=== PATIENT | female | born 1995 | race Two or more races ===

== ENCOUNTER 2025-03-16 22:45 | Inpatient (IN) | payer MEDICAID, OTHER ==
[~2025-03-16] VITALS: Ht 165.1 cm; Wt 83.5 kg
--- NOTE | 2025-03-17 01:00 | ED.PDOC ---
History of Present Illness HPI Comments 29-year-old female who presents with the emergency department with 1 day of intense 10/10 abdominal pain in the mid upper abdomen radiating to the back. No aggravating or alleviating factors. Patient reports similar symptoms 4 years ago after eating bad food while she was . She reports associated vo miting. Diarrhea, constipation, blood in the stool or vomit. No hematuria. she is unsure if she could be . Medical history includes mastitis, breast biopsy. She was on Keflex and completed a one-week course Saturday. She denies any allergies. REVIEW OF SYSTEMS: General: No fever, no chills, or fatigue, + sweats HEENT: No sore throat, no earache, no congestion, no neck pain. Cardiac: No chest pain. No palpitations. Lungs: No shortness of breath, no cough. GI: + nausea, + vomiting, no diarrhea, no constipation, no abdominal pain : No dysuria, frequency, or urgency. No hematuria. Musculoskeletal: No joint pain , no joint swelling, no extremity edema. Skin: No rash, no itching. Neuro: No headache, no dizziness, no weakness PHYSICAL EXAM: General: Awake, alert and oriented. No acute distress. Skin: Skin in warm, dry and intact without rashes or lesions. HEENT: The head is normocephalic and atraumatic. Conjunctivae are clear without exudates or hemorrhage. Sclera is non-icteric. Neck: Normal range of motion. No JVD. Cardiac: Regular rate Respiratory: No signs of respiratory distress. No Stridor. Abdomen: Epigastric and right upper quadrant tenderness. Abdomen is Soft. No rigidity. Neurological: The patient is awake, alert and oriented to person, place, and time with normal speech. Speech is clear. There is no facial asymmetry. Psychiatric: Appropriate mood and affect. Good judgement and insight. Chief Complaint: Nausea/Vomiting Time Seen by MD: 00:20 Allergies: Coded Allergies: NO KNOWN ALLERGIES (Unverified , 03/16/25) Mode of Arrival: Ambulatory Was a procedure done? Was a procedure done?: No Differential Dx Considerations may include: Differential diagnoses considered include: Abdominal aortic aneurysm, IN, esophageal rupture, intestinal obstruction, mesenteric ischemia, perforated viscus or solid organ rupture, CHF with hepatomegaly, pneumonia, abscess, appendicitis, biliary disease, diverticulitis, gastritis, gastroenteritis, hepatitis, hernia, inflammatory bowel disease, pancreatitis, peptic ulcer dis ease, urinary tract infection, ureteral colic, constipation, GERD, irritable syndrome, abdominal wall pain, nonspecific abdominal pain, herpes zoster, nephrolithiasis. Also ruptured ectopic , ovarian torsion/cyst, tubo- ovarian abscess, PID, endometriosis, mittleschmerz. X-Ray, Labs, Meds, VS Vital Signs Date Time Temp Pulse Resp B/P (MAP) Pulse Ox O2 Delivery O2 Flow Rate FiO2 03/17/25 05:00 98.3 80 14 130/79 (96) 97 98.3 03/17/25 02:45 Room Air* 0 21 03/17/25 01:30 98.4 48 14 132/80 (97) 100 98.4 03/16/25 22:49 98.3 59 18 150/94 98 98.3 Lab Test 03/17/25 03:00 03/17/25 01:05 Range/Units Urine Color Yellow Yellow Urine Clarity Turbid H Clear Urine pH 7.0 5.0-9.0 Urine Specific [place] 1.036 H 1.001-1.035 Urine Protein 1+ H Negative Urine Ketones Negative Negative Urine Blood Negative Negative /uL Urine Nitrite Negative Negative Urine Bilirubin 1+ H Negative Urine Urobilinogen 6 Negative mg/dL Urine Leukocyte Esterase 1+ Negative /uL Urine RBC 42 0 - 4 /hpf Urine Microscopic WBC 5 0-5 /HPF Urine Squamous Epithelial Cells Mod <5 /hpf Urine Bacteria None seen None Seen /hpf Urine Mucus Few None Seen Urine Glucose Normal Normal mg/dL Urine Test Negative Negative White Blood Count 11.0 H 4.4-10.8 10^3/uL Red Blood Count 4.57 4.0-5.20 10^6/uL Hemoglobin 13.5 12.2-16.2 g/dL Hematocrit 39.1 36.0-46.0 % Mean Corpuscular Volume 85.7 80.0-100.0 fL Mean Corpuscular Hemoglobin 29.5 28.0-32.0 pg Mean Corpuscular Hemoglobin Concent 34.5 32.0-36.0 g/dL Red Cell Distribution Width 14.8 H 11.8-14.3 % Platelet Count 259 140-450 10^3/uL Mean Platelet Volume 6.2 L 6.9-10.8 fL Neutrophils (%) (Auto) 86.2 H 37.0-80.0 % Lymphocytes (%) (Auto) 6.5 L 10.0-50.0 % Monocytes (%) (Auto) 6.5 0.0-12.0 % Eosinophils (%) (Auto) 0.4 0.0-7.0 % Basophils (%) (Auto) 0.4 0.0-2.0 % Neutrophils # (Auto) 9.5 H 1.6-8.6 10 ^3/uL Lymphocytes # (Auto) 0.7 0.4-5.4 10 ^3/uL Monocytes # (Auto) 0.7 0-1.3 10 ^3/uL Eosinophils # (Auto) 0 0-0.8 10 ^3/uL Basophils # (Auto) 0 0-0.2 10 ^3/uL Nucleated Red Blood Cells 0.0 % Sodium Level 138 136-145 mmol/L Potassium Level 4.3 3.5-5.1 mmol/L Chloride Level 103 98-107 mmol/L Carbon Dioxide Level 25 20-31 mmol/L Anion Gap 10 5-15 Blood Urea Nitrogen 10 9-23 mg/dL Creatinine 0.62 0.550-1.02 mg/dL Glomerular Filtration Rate Calc 124 >90 mL/min BUN/Creatinine Ratio 16.1 10.0-20.0 Serum Glucose 157 H 74-106 mg/dL Lactic Acid Level 1.6 0.4-2.0 mmol/L Calcium Level 9.3 8.7-10.4 mg/dL Total Bilirubin 1.2 H 0.2-1.0 mg/dL Aspartate Amino Transferase (AST) 687 H 13-40 U/L Alanine Aminotransferase (ALT) 431 H 7-40 U/L Alkaline Phosphatase 109 46-116 U/L Total Protein 7.2 5.7-8.2 g/dL Albumin 4.5 3.2-4.8 g/dL Lipase 36 12-53 U/L Current Medications Medications (Trade) Dose Ordered Sig/Hayes Route Start Time Stop Time Status Last Admin Ketorolac Tromethamine (Toradol Injection) 30 mg ONCE ONCE IM 03/17/25 00:45 03/17/25 01:02 DC 03/17/25 01:28 Tramadol HCl (Ultram) 50 mg ONCE ONCE PO 03/17/25 00:45 03/17/25 01:02 DC 03/17/25 01:27 Acetaminophen (Tylenol Tablet) 650 mg ONCE ONCE PO 03/17/25 00:45 03/17/25 01:03 DC 03/17/25 01:27 Ondansetron HCl (Zofran Po) 4 mg ONCE ONCE PO 03/17/25 00:45 03/17/25 01:03 DC 03/17/25 01:27 Sodium Chloride 1,000 ml @ 100 mls/hr Q10H IV 03/17/25 08:15 03/17/25 15:31 Sodium Chloride 1,000 ml @ 1,000 mls/hr Q1H ONCE IV 03/17/25 08:15 03/17/25 09:14 DC 03/17/25 09:00 Time of 1ST Reevaluation: 00:59 Reevaluation 1ST: Unchanged Patient Education/Counseling: Need For Follow Up Family Education/Counseling: Need For Follow Up SEPSIS Sepsis Screen Date sepsis recognized/suspect: Mar 16, 2025 Time Sepsis recognized/suspect: 2248 Recent Procedure: No Respiratory Rate >20: No Heart Rate >90: No Temp<36 C (96.8 F) or >38.3 C: No SBP <90 or MAP <65 mmHG: No New Acute Mental Status Change: No Is the patient on CPAP, BIPAP,: No Physician Orders Gallbladder (03/17/25 00:45) Ct Ab Pel With Iv Con Only (03/17/25 05:00) Mrcp Mri (03/17/25 05:38) Code Status (03/17/25 08:13) Sodium Chloride 0.9% (03/17/25 08:15) Hydrocodone-Acet 5/325mg Tab ([place] 5/32 (03/17/25 08:15) Ondansetron Hcl (Zofran) (03/17/25 08:15) Docusate Sodium Capsule (Colace Capsule) (03/17/25 08:15) Complete Blood Count (03/18/25 04:00) Comprehensive Metabolic Panel (03/18/25 04:00) Npo (Nothing By Mouth) Diet (03/17/25 Breakfast) Condition: Serious (03/17/25 08:13) Acetaminophen Tablet (Tylenol Tablet) (03/17/25 08:15) Chest Xray 1 View (03/17/25 08:13) * Surgical Consult (03/17/25 08:23) Admit (03/17/25 08:26) Vital Signs Date Time Temp Pulse Resp B/P (MAP) Pulse Ox O2 Delivery O2 Flow Rate FiO2 03/17/25 05:00 98.3 80 14 130/79 (96) 97 98.3 03/17/25 02:45 Room Air* 0 21 03/17/25 01:30 98.4 48 14 132/80 (97) 100 98.4 03/16/25 22:49 98.3 59 18 150/94 98 98.3 Laboratory Tests Test 03/17/25 01:05 Lactic Acid Level 1.6 mmol/L (0.4-2.0) White Blood Count 11.0 10^3/uL (4.4-10.8) H Medications Medications Dose Ordered Sig/Hayes Route Start Time Stop Time Status Last Admin Dose Admin Sodium Chloride 1,000 ml @ 100 mls/hr Q10H IV 03/17/25 08:15 03/17/25 15:31 Sodium Chloride 1,000 ml @ 1,000 mls/hr Q1H ONCE IV 03/17/25 08:15 03/17/25 09:14 DC 03/17/25 09:00 Departure 1 Departure Time of Disposition: 06:00 Impression: Primary Impression: Cholelithiases Additional Impression: Elevated LFTs Disposition: 30 STILL A PATIENT Condition: Stable Comments Possible transfer for ERCP pending MRCP results. Critical Care Note Critical Care Time?: No Stability Stability form required: DIONNE Abbott MD Mar 17, 2025 01:00
[2025-03-17 01:19] LABS: Hematocrit 39.1 % (36.0-46.0); Hemoglobin 13.5 g/dL (12.2-16.2); Mean Corpuscular Hemoglobin 29.5 pg (28.0-32.0); Mean Corpuscular Volume 85.7 fL (80.0-100.0); Nucleated Red Blood Cells % 0.0 %
[2025-03-17] MEDS: ACETAMINOPHEN 325 MG TAB PO ONE (01:27)
[2025-03-17] MEDS: ONDANSETRON ODT 4 MG TAB PO ONE (01:27)
[2025-03-17] MEDS: KETOROLAC TROMETH 30 MG/ML 1ML VIAL IM ONE (01:28)
[2025-03-17 01:45] LABS: Albumin 4.5 g/dL (3.2-4.8); Alkaline Phosphatase 109 U/L (46-116); Anion Gap 10 (5-15); BUN/Creatinine Ratio 16.1 (10.0-20.0); Blood Urea Nitrogen 10 mg/dL (9-23); Calcium 9.3 mg/dL (8.7-10.4); Carbon Dioxide 25 mmol/L (20-31); Chloride 103 mmol/L (98-107); Lipase 36 U/L (12-53); Potassium 4.3 mmol/L (3.5-5.1); Sodium 138 mmol/L (136-145); Total Protein 7.2 g/dL (5.7-8.2)
[2025-03-17 01:46] LABS: Bilirubin, Total 1.2 mg/dL (0.2-1.0)
--- NOTE | 2025-03-17 01:47 | DVH ---
INDICATION: RUQ, epigastric tender TECHNIQUE: Multiple real-time sonographic images were obtained of the right upper quadrant. COMPARISON: None FINDINGS: The liver demonstrates normal homogeneous echotexture without focal mass lesions. The liver measures 16.8 cm. Normal hepatopetal portal venous flow. No evidence of pleural effusion or abdomin al ascites. There is no intrahepatic or extrahepatic ductal dilatation. The common duct measures 0.5 cm. Mobile gallstones within the gallbladder. The gallbladder wall measures 0.3 cm and is within normal l imits. Negative sonographic bergman's sign. The right kidney measures 9.6 cm. The right kidney is normal in contour, size, and shape. The echogen icity is normal. There is no hydronephrosis. The pancreas is not well visualized due to overlying bowel gas. IMPRESSION: 1. Cholelithiasis without sonographic evidence of acute cholecystitis.
[2025-03-17 01:48] LABS: Alanine Aminotransferase 431 U/L (7-40); Glucose 157 mg/dL (74-106)
[2025-03-17 04:36] LABS: Urine Protein, UAD 1+ (Negative)
--- NOTE | 2025-03-17 05:27 | DVH ---
Exam: CT CT AB PEL WITH IV CON ONLY History: elevated LFTs, r/o cholecystitis , r/o dilated CBD Comparison Study: None Contrast: Type of contrast: Contrast injected: Contrast wasted: 0 TECHNIQUE: CT of the abdomen and pelvis was performed with intravenous contrast. Coronal and sagitta l reformatted images are submitted. Radiation Dose Information: CT Dose: CTDI volume is 17.99 mGy. Dose-length product is 1020.1 mGy*cm FINDINGS: Lung Bases: No acute or significant lung base finding. Normal heart size. No pleural or pericardial effusion. Liver: The liver is normal in size. No focal lesions. Normal hepatic vascular enhancement. Gallbladder and Biliary Tree: Distended gallbladder. Mild diffuse intrahepatic biliary ductal dilatat ion. The common bile duct measures 0.5 cm. Spleen: Unremarkable Pancreas: The pancreas is normal in appearance without focal lesions or abnormal enhancement. Adrenal Glands: Unremarkable Kidneys: Kidneys demonstrate normal symmetric enhancement without focal lesions, calculi or hydroneph rosis. Bladder: Unremarkable Bowel: The stomach is grossly normal in appearance. Small bowel and colon are normal in caliber and d istribution. The appendix is visualized and is normal. Peritoneum: No pneumoperitoneum. No ascites. Lymphadenopathy: No mesenteric, retroperitoneal or periportal lymphadenopathy. Abdominal Wall and Mesentery: Unremarkable. Vasculature: The visualized abdominal aorta is normal in size and caliber. Abdominal and pelvic vess els demonstrate normal enhancement. Pelvic Organs: Unremarkable Musculoskeletal: No aggressive focal bony lesions, acute fractures or dislocation. Soft tissues: Unremarkable. IMPRESSION: 1. Distended gallbladder with mild diffuse intrahepatic biliary ductal dilatation. No cholelithias is. Ultrasound is recommended for further evaluation.
[2025-03-17] MEDS ORDERED: DOCUSATE SOD 100 MG CAP PO PRN (08:15)
[2025-03-17] MEDS ORDERED: ONDANSETRON HCL 4 MG/2 ML VIAL IV PRN (08:15)
--- NOTE | 2025-03-17 08:24 | DVHHP2 ---
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 Patient states the pain began about 1800 with associated sweating, nausea, and vomiting. It worsened about 2200 prompting her to come to the hospital. She last ate about 1700. She states she had an episode like this about 4 years ago, but they pain improved so she never went to the doctor for it. Dermatology: Other (chronic mastitis with abscesses) Past Surgical History: None Smoke: No ALCOHOL: none Drugs: None Lives: with Family Domestic Violence: Neg Review of Systems Constitutional: Yes: Sweats; No: Fever, Chills, Weakness, Malaise, Other Eyes: No: Pain, Vision change, Conjunctivae inflammation, Eyelid inflammation, Other, Redness ENT: No: Ear pain, Ear discharge, Nose pain, Nose discharge, Nose congestion, Mouth pain, Mouth swelling, Throat pain, Throat swelling, Other Respiratory: No: Cough, Dry, Shortness of breath, SOB with excertion, Wheezing, Hemoptysis, Pleuritic Pain, Sputum, Wheezing, Other Cardiovascular: No: Chest Pain, Palpitations, Orthopnea, Paroxysmal Noc. Dyspnea, Edema, Lt Headedness, Other Gastrointestinal: Nausea, Vomiting, Abdominal Pain; No: Diarrhea, Constipation, Melena, Hematochezia, Other Genitourinary: No Dysuria, No Frequency, No Incontinence, No Hematuria, No Retention, No Other Musculoskeletal: No: other, neck pain, shoulder pain, arm pain, back pain, hand pain, leg pain, foot pain Skin: No: Rash, Lesions, Jaundice, Bruising, Other Neurological: No: Weakness, Numbness, Incoordination, Change in speech, Confusion, Seizures, Other Allergies: Coded Allergies: NO KNOWN ALLERGIES (Unverified , 03/16/25) Medications Current Medications Medications Dose Ordered Sig/Hayes Route Start Time Stop Time Status Last Admin Dose Admin Sodium Chloride 1,000 ml @ 100 mls/hr Q10H IV 03/17/25 08:15 UNV Acetaminophen/ Hydrocodone Bitart 1 tab Q4HP PRN PO 03/17/25 08:15 UNV Ondansetron HCl 4 mg Q4HP PRN IV 03/17/25 08:15 UNV Docusate Sodium 100 mg BIDPRN PRN PO 03/17/25 08:15 UNV Acetaminophen 650 mg Q6HP PRN PO 03/17/25 08:15 UNV Exam Vital Signs Vital Signs Date Time Temp Pulse Resp B/P (MAP) Pulse Ox O2 Delivery O2 Flow Rate FiO2 03/17/25 05:00 98.3 80 14 130/79 (96) 97 98.3 03/17/25 02:45 Room Air* 0 21 General Appearance: Alert, Oriented X3, Cooperative, mild distress HEENT: Atraumatic, PERRLA Respiratory: Clear to auscultation, Normal air movement Cardiovascular: Regular rate, Normal S1, Normal S2 Abdominal: Normal bowel sounds, Soft, Other (Tenderness to RUQ) Extremities: No clubbing, No cyanosis, No edema, Normal pulses, No tenderness/swelling Skin: No rashes, No breakdown, No significant lesion Neuro: Normal gait, Normal speech, Strength at 5/5 X4 ext, Normal tone Psych/Mental Status: Mental status NL, Mood NL Labs/Xrays Labs Test 03/17/25 03:00 03/17/25 01:05 Range/Units Urine Color Yellow Yellow Urine Clarity Turbid H Clear Urine pH 7.0 5.0-9.0 Urine Specific [place] 1.036 H 1.001-1.035 Urine Protein 1+ H Negative Urine Ketones Negative Negative Urine Blood Negative Negative /uL Urine Nitrite Negative Negative Urine Bilirubin 1+ H Negative Urine Urobilinogen 6 Negative mg/dL Urine Leukocyte Esterase 1+ Negative /uL Urine RBC 42 0 - 4 /hpf Urine Microscopic WBC 5 0-5 /HPF Urine Squamous Epithelial Cells Mod <5 /hpf Urine Bacteria None seen None Seen /hpf Urine Mucus Few None Seen Urine Glucose Normal Normal mg/dL Urine Test Negative Negative White Blood Count 11.0 H 4.4-10.8 10^3/uL Red Blood Count 4.57 4.0-5.20 10^6/uL Hemoglobin 13.5 12.2-16.2 g/dL Hematocrit 39.1 36.0-46.0 % Mean Corpuscular Volume 85.7 80.0-100.0 fL Mean Corpuscular Hemoglobin 29.5 28.0-32.0 pg Mean Corpuscular Hemoglobin Concent 34.5 32.0-36.0 g/dL Red Cell Distribution Width 14.8 H 11.8-14.3 % Platelet Count 259 140-450 10^3/uL Mean Platelet Volume 6.2 L 6.9-10.8 fL Neutrophils (%) (Auto) 86.2 H 37.0-80.0 % Lymphocytes (%) (Auto) 6.5 L 10.0-50.0 % Monocytes (%) (Auto) 6.5 0.0-12.0 % Eosinophils (%) (Auto) 0.4 0.0-7.0 % Basophils (%) (Auto) 0.4 0.0-2.0 % Neutrophils # (Auto) 9.5 H 1.6-8.6 10 ^3/uL Lymphocytes # (Auto) 0.7 0.4-5.4 10 ^3/uL Monocytes # (Auto) 0.7 0-1.3 10 ^3/uL Eosinophils # (Auto) 0 0-0.8 10 ^3/uL Basophils # (Auto) 0 0-0.2 10 ^3/uL Nucleated Red Blood Cells 0.0 % Sodium Level 138 136-145 mmol/L Potassium Level 4.3 3.5-5.1 mmol/L Chloride Level 103 98-107 mmol/L Carbon Dioxide Level 25 20-31 mmol/L Anion Gap 10 5-15 Blood Urea Nitrogen 10 9-23 mg/dL Creatinine 0.62 0.550-1.02 mg/dL Glomerular Filtration Rate Calc 124 >90 mL/min BUN/Creatinine Ratio 16.1 10.0-20.0 Serum Glucose 157 H 74-106 mg/dL Lactic Acid Level 1.6 0.4-2.0 mmol/L Calcium Level 9.3 8.7-10.4 mg/dL Total Bilirubin 1.2 H 0.2-1.0 mg/dL Aspartate Amino Transferase (AST) 687 H 13-40 U/L Alanine Aminotransferase (ALT) 431 H 7-40 U/L Alkaline Phosphatase 109 46-116 U/L Total Protein 7.2 5.7-8.2 g/dL Albumin 4.5 3.2-4.8 g/dL Lipase 36 12-53 U/L TECHNIQUE: Multiple real-time sonographic images were obtained of the right upper quadrant. FINDINGS: The liver demonstrates normal homogeneous echotexture without focal mass lesions. The liver measures 16.8 cm. Normal hepatopetal portal venous flow. No evidence of pleural effusion or abdominal ascites. There is no intrahepatic or extrahepatic ductal dilatation. The common duct measures 0.5 cm. Mobile gallstones within the gallbladder. The gallbladder wall measures 0.3 cm and is within normal limits. Negative sonographic bergman's sign. The right kidney measures 9.6 cm. The right kidney is normal in contour, size, and shape. The echogenicity is normal. There is no hydronephrosis. The pancreas is not well visualized due to overlying bowel gas. IMPRESSION: 1. Cholelithiasis without sonographic evidence of acute cholecystitis. Exam: CT CT AB PEL WITH IV CON ONLY FINDINGS: Lung Bases: No acute or significant lung base finding. Normal heart size. No p leural or pericardial effusion. Liver: The liver is normal in size. No focal lesions. Normal hepatic vascular enhancement. Gallbladder and Biliary Tree: Distended gallbladder. Mild diffuse intrahepatic biliary ductal dilatation. The common bile duct measures 0.5 cm. Spleen: Unremarkable Pancreas: The pancreas is normal in appearance without focal lesions or abnormal enhancement. Adrenal Glands: Unremarkable Kidneys: Kidneys demonstrate normal symmetric enhancement without focal lesions, calculi or hydronephrosis. Bladder: Unremarkable Bowel: The stomach is grossly normal in appearance. Small bowel and colon are normal in caliber and distribution. The appendix is visualized and is normal. Peritoneum: No pneumoperitoneum. No ascites. Lymphadenopathy: No mesenteric, retroperitoneal or periportal lymphadenopathy. Abdominal Wall and Mesentery: Unremarkable. Vasculature: The visualized abdominal aorta is normal in size and caliber. Abdominal and pelvic vessels demonstrate normal enhancement. Pelvic Organs: Unremarkable Musculoskeletal: No aggressive focal bony lesions, acute fractures or dislocation. Soft tissues: Unremarkable. IMPRESSION: 1. Distended gallbladder with mild diffuse intrahepatic biliary ductal dilatation. No cholelithiasis. Ultrasound is recommended for further evaluation. SEPSIS Sepsis Screen Date sepsis recognized/suspect: Mar 17, 2025 Time Sepsis recognized/suspect: 0246 Recent Procedure: No On Antibiotic Therapy: No Respiratory Rate >20: No Heart Rate >90: No Temp<36 C (96.8 F) or >38.3 C: No SBP <90 or MAP <65 mmHG: No New Acute Mental Status Change: No Is the patient on CPAP, BIPAP,: No Physician Orders Gallbladder (03/17/25 00:45) Ct Ab Pel With Iv Con Only (03/17/25 05:00) Mrcp Mri (03/17/25 05:38) Admit (03/17/25 08:13) Code Status (03/17/25 08:13) Sodium Chloride 0.9% (03/17/25 08:15) Hydrocodone-Acet 5/325mg Tab ([place] 5/32 (03/17/25 08:15) Ondansetron Hcl (Zofran) (03/17/25 08:15) Docusate Sodium Capsule (Colace Capsule) (03/17/25 08:15) Complete Blood Count (03/18/25 04:00) Comprehensive Metabolic Panel (03/18/25 04:00) Npo (Nothing By Mouth) Diet (03/17/25 Breakfast) Condition: Serious (03/17/25 08:13) Acetaminophen Tablet (Tylenol Tablet) (03/17/25 08:15) Sodium Chloride 0.9% (03/17/25 08:15) * Surgical Consult (03/17/25 ) PTPTT (03/17/25 08:13) Chest Xray 1 View (03/17/25 08:13) Vital Signs Date Time Temp Pulse Resp B/P (MAP) Pulse Ox O2 Delivery O2 Flow Rate FiO2 03/17/25 05:00 98.3 80 14 130/79 (96) 97 98.3 03/17/25 02:45 Room Air* 0 21 03/17/25 01:30 98.4 48 14 132/80 (97) 100 98.4 Laboratory Tests Test 03/17/25 01:05 Lactic Acid Level 1.6 mmol/L (0.4-2.0) White Blood Count 11.0 10^3/uL (4.4-10.8) H Medications Medications Dose Ordered Sig/Hayes Route Start Time Stop Time Status Last Admin Dose Admin Acetaminophen 650 mg ONCE ONCE PO 03/17/25 00:45 03/17/25 01:03 DC 03/17/25 01:27 650 MG Ketorolac Tromethamine 30 mg ONCE ONCE IM 03/17/25 00:45 03/17/25 01:02 DC 03/17/25 01:28 30 MG Ondansetron HCl 4 mg ONCE ONCE PO 03/17/25 00:45 03/17/25 01:03 DC 03/17/25 01:27 4 MG Tramadol HCl 50 mg ONCE ONCE PO 03/17/25 00:45 03/17/25 01:02 DC 03/17/25 01:27 50 MG Assessment/Plan Assessment/Plan Assessment: Cholelithiasis, Possible Cholecystitis, Transaminitis, Plan: Admit to Med-Surg, Surgical consult, MRCP, NPO, PT/PTT, IV antibiotics, IV hydration, Pain management, Plan discussed with: Patient My Orders Orders - SANA IZQUIERDO Procedure Category Date Status Time Admit ADMIT 03/17/25 Transmitted 08:13 Code Status CODE 03/17/25 Transmitted 08:13 Sodium Chloride 0.9% PHA 03/17/25 Logged 08:15 Hydrocodone-Acet PHA 03/17/25 Logged 5/325mg Tab ([place] 08:15 Ondansetron Hcl PHA 03/17/25 Logged (Zofran) 08:15 Docusate Sodium PHA 03/17/25 Logged Capsule (Colace 08:15 Complete Blood Count LAB 03/18/25 Verified 04:00 Comprehensive LAB 03/18/25 Verified Metabolic Panel 04:00 Npo (Nothing By DIET 03/17/25 Transmitted Mouth) Diet Breakfast Condition: Serious JUNE 03/17/25 In Process 08:13 Acetaminophen Tablet PHA 03/17/25 Logged (Tylenol Tablet) 08:15 Sodium Chloride 0.9% PHA 03/17/25 Logged 08:15 * Surgical Consult CONS 03/17/25 Transmitted PTPTT LAB 03/17/25 Logged 08:13 Chest Xray 1 View XY 03/17/25 Logged 08:13 Date of Service: Mar 17, 2025 Billing Provider: SANA IZQUIERDO Common Visit Codes: [id number] INP/OBS CARE (MOD) SANA IZQUIERDO Mar 17, 2025 08:23
[2025-03-17] MEDS: SODIUM CHLORIDE 0.9% 1,000 ML IV ONE (09:00)
--- NOTE | 2025-03-17 09:01 | DVH ---
CHEST RADIOGRAPH Indication: Pre-Op Technique: Single frontal view of the chest was obtained Comparison: None FINDINGS: Lines and Tubes: None Lungs: No focal consolidation. Pleura: No effusion. No pneumothorax. Cardiomediastinal contours: Unremarkable Bones: No acute osseous abnormality. IMPRESSION: 1. No acute cardiopulmonary disease.
[2025-03-17 10:38] LABS: INR 0.97 (0.9-1.15); Partial Thromboplastin Time 23.4 SEC (24.5-34.5); Prothrombin Time 10.3 sec (9.3-11.8)
[2025-03-17 11:02] VITALS: BP 126/73; PULSE 73; RESP 16; TEMP 97.8; O2SAT 97
[2025-03-17 13:00] VITALS: BP 128/80; PULSE 56; RESP 18; TEMP 97.2; O2SAT 100
--- NOTE | 2025-03-17 13:35 | DVHPN2 ---
Reviewed: Care Plan, H&P, Labs, Medications, Previous Orders, Radiology Changes from previous H/P or p: No Changes Objective Vitals Vital Signs Date Time Temp Pulse Resp B/P (MAP) Pulse Ox O2 Delivery O2 Flow Rate FiO2 03/17/25 13:00 97.2 56 18 128/80 (96) 100 97.2 03/17/25 08:44 Room Air 03/17/25 02:45 0 21 Medications Current Medications Medications Dose Ordered Sig/Hayes Route Start Time Stop Time Status Last Admin Dose Admin Sodium Chloride 1,000 ml @ 100 mls/hr Q10H IV 03/17/25 08:15 Acetaminophen/ Hydrocodone Bitart 1 tab Q4HP PRN PO 03/17/25 08:15 Ondansetron HCl 4 mg Q4HP PRN IV 03/17/25 08:15 Docusate Sodium 100 mg BIDPRN PRN PO 03/17/25 08:15 Acetaminophen 650 mg Q6HP PRN PO 03/17/25 08:15 Laboratory Results Laboratory Tests 03/17/25 01:05 Chemistry Test 03/17/25 01:05 Albumin 4.5 g/dL (3.2-4.8) Calcium Level 9.3 mg/dL (8.7-10.4) Total Protein 7.2 g/dL (5.7-8.2) Coagulation Test 03/17/25 10:00 Prothrombin Time 10.3 sec (9.3-11.8) Prothrombin Time INR 0.97 (0.9-1.15) Activated Partial Thromboplast Time 23.4 SEC (24.5-34.5) L Lipid panel Test 03/17/25 01:05 Lipase 36 U/L (12-53) LFT Test 03/17/25 01:05 Alanine Aminotransferase (ALT) 431 U/L (7-40) H Alkaline Phosphatase 109 U/L (46-116) Aspartate Amino Transferase (AST) 687 U/L (13-40) H Total Bilirubin 1.2 mg/dL (0.2-1.0) H Urinalysis Test 03/17/25 03:00 Urine Color Yellow (Yellow) Urine Clarity Turbid (Clear) H Urine pH 7.0 (5.0-9.0) Urine Specific [place] 1.036 (1.001-1.035) Urine Protein 1+ (Negative) H Urine Ketones Negative (Negative) Urine Blood Negative /uL (Negative) Urine Nitrite Negative (Negative) Urine Bilirubin 1+ (Negative) H Urine Urobilinogen 6 mg/dL (Negative) Urine Leukocyte Esterase 1+ /uL (Negative) Urine RBC 42 /hpf (0 - 4) Urine Microscopic WBC 5 /HPF (0-5) Urine Squamous Epithelial Cells Mod /hpf (<5) Urine Bacteria None seen /hpf (None Seen) Urine Mucus Few (None Seen) Urine Glucose Normal mg/dL (Normal) Urine Test Negative (Negative) Labs and/or images reviewed: Labs reviewed by me, Image(s) reviewed by me Assessment/Plan Assessment/Plan Acute right upper quadrant abdominal pain Cholelithiasis possible cholecystitis: Rocephin Flagyl pain medication surgical consult HIDA scan Acute dehydration: IV fluids Time Spent 36 minutes Plan discussed with: Patient My Orders Orders - ALFONZO SEALS MD Procedure Category Date Status Time Ceftriaxone Ivpb PHA 03/18/25 Verified Rocephin 09:00 Ceftriaxone Ivpb PHA 03/17/25 Verified Rocephin 13:45 Metronidazole Ivpb PHA 03/17/25 Verified Flagyl 14:00 Date of Service: Mar 17, 2025 Billing Provider: ALFONZO SEALS MD Common Visit Codes: [id number] INP/OBS CARE(HIGH) ALFONZO SEALS MD Mar 17, 2025 13:34
--- NOTE | 2025-03-17 13:38 | DVH ---
PROCEDURE: MRI MRCP MRI Indication: Elevated LFTs, intrehepatic dilation. COMPARISON: CT abdomen pelvis from today TECHNIQUE: Multiplanar multisequence images of the brain are obtained. FINDINGS: Adrenal glands, spleen, pancreas unremarkable. There are no T2 hyperintense lesions of the liver. Di lated intrahepatic ducts as described below. Kidneys demonstrate no hydronephrosis. Hydropic/ distended gallbladder with pericholecystic, gallbladder wall edema. Cholelithiasis with sma ll gallstones near the gallbladder neck / cystic duct. The common bile duct measures 7 mm in diameter . Intrahepatic ducts dilated to 8 mm. Pancreatic duct normal in caliber measuring 2 mm. Tiny bilateral pleural effusions. IMPRESSION: Hydropic/Distended gallbladder with pericholecystic, gallbladder wall edema and small gallstones near the gallbladder neck/ cystic duct. Findings concerning for cholecystitis. Recommend HIDA scan. Dilatation of intrahepatic ducts 8 mm and borderline dilatation CBD to 7 mm. No definitive choledocho lithiasis identified. Dilatation of the intrahepatic ducts could be secondary to mass effect/ fred mei from the gallbladder upon the cBD/common hepatic duct.
[2025-03-17] MEDS: SODIUM CHLORIDE 0.9% 1,000 ML IV SCH (15:31)
[2025-03-17 16:53] VITALS: BP 110/68; PULSE 82; RESP 16; TEMP 98.2; O2SAT 98
--- NOTE | 2025-03-17 18:47 | DVH ---
Procedure: NM NM HIDA SCAN Exam Date: 03/17/2025 01:47 PM Clinical History: rule out Cholecystitis Comparison Study: None Nuclear Medicine Hepatobiliary Scan. Technique: Following the intravenous administration of 4.3 mCi of technetium 99m labeled Choletec multiple plana r abdominal planar images were obtained in anterior projection in 1 minute intervals for 16 minutes . Right lateral images were obtained at 4 hours minutes after injection. Findings: Prompt uptake within the liver. The tracer remains within the liver at the 1 hour and 4 intervals wit h no significant tracer seen within the small bowel at 1 hour and 4 hours. The gallbladder is nonvisu alized. Impression: Persistent tracer within the liver at 1 and 4 hour. Given the previous MRCP findings, these findings could represent sequela of combination of cystic duct, CBD obstruction secondary to the underlying d istended gallbladder compressing upon the CBD/ common hepatic duct, suggestive of Mirizzi syndrome. Recommend surgical and GI consultation.
[2025-03-17 21:00] VITALS: BP 124/83; PULSE 94; RESP 16; TEMP 97.2; O2SAT 97
[2025-03-17 23:00] VITALS: BP 113/78; PULSE 68; RESP 17; TEMP 98.5; O2SAT 98
[2025-03-18] VITALS (8 sets, daily range): BP systolic 110–160; BP diastolic 70–91; PULSE 69–85; RESP 15–18; TEMP 98.1–98.7; O2SAT 94–100
[2025-03-18] MEDS: HYDROcodone-ACET 5/325MG TAB PO PRN (06:42)
[2025-03-18 07:08] LABS: Hematocrit 38.4 % (36.0-46.0); Hemoglobin 13.1 g/dL (12.2-16.2); Mean Corpuscular Hemoglobin 29.1 pg (28.0-32.0); Mean Corpuscular Volume 85.5 fL (80.0-100.0); Nucleated Red Blood Cells % 0.0 %
[2025-03-18 07:18] LABS: Anion Gap 13 (5-15); BUN/Creatinine Ratio 12.8 (10.0-20.0); Carbon Dioxide 21 mmol/L (20-31); Chloride 106 mmol/L (98-107); Potassium 3.6 mmol/L (3.5-5.1); Sodium 140 mmol/L (136-145); Total Protein 6.5 g/dL (5.7-8.2)
[2025-03-18 07:19] LABS: Albumin 4.1 g/dL (3.2-4.8)
[2025-03-18 07:35] LABS: Alanine Aminotransferase 526 U/L (7-40); Alkaline Phosphatase 151 U/L (46-116); Bilirubin, Total 4.7 mg/dL (0.2-1.0); Blood Urea Nitrogen 6 mg/dL (9-23); Calcium 8.5 mg/dL (8.7-10.4); Glucose 69 mg/dL (74-106)
[2025-03-18] MEDS ORDERED: HYDROmorphone HCL 2 MG/ML VL/or syr IV PRN (08:45)
[2025-03-18] MEDS: D5W/SOD CHL 0.45%/KCL 20MEQ 1,000 ML IV SCH (10:17)
--- NOTE | 2025-03-18 11:38 | DVHINCON2 ---
Date of service: Mar 18, 2025 Family History: Patient reports no known family medical history. Allergies: Coded Allergies: NO KNOWN ALLERGIES (Unverified , 03/16/25) Current Medications Current Medications Medications (Trade) Dose Ordered Sig/Hayes Route PRN Reason Start Time Stop Time Status Last Admin Ceftriaxone Sodium 50 ml @ 100 mls/hr DAILY@09 IV 03/18/25 09:00 03/18/25 10:17 Metronidazole 100 ml @ 100 mls/hr Q8HR IV 03/17/25 14:00 03/18/25 05:00 Potassium Chloride/Dextrose/ Sod Cl 1,000 ml @ 120 mls/hr Q8H20M IV 03/18/25 08:45 03/18/25 10:17 Hydromorphone HCl (Dilaudid Injection) 1 mg Q3HPRN PRN IV SEVERE PAIN (7-10 PAIN SCALE) 03/18/25 08:45 Vital Signs Vital Signs Date Time Temp Pulse Resp B/P (MAP) Pulse Ox O2 Delivery O2 Flow Rate FiO2 03/18/25 08:47 98.7 71 16 117/73 (88) 97 98.7 03/18/25 08:00 Room Air* 0 21 Labs/Diagnostic Data Labs Test 03/18/25 05:16 03/17/25 10:00 03/17/25 03:00 03/17/25 01:05 Range/Units White Blood Count 7.1 # 4.4-10.8 10^3/uL Red Blood Count 4.50 4.0-5.20 10^6/uL Hemoglobin 13.1 12.2-16.2 g/dL Hematocrit 38.4 36.0-46.0 % Mean Corpuscular Volume 85.5 80.0-100.0 fL Mean Corpuscular Hemoglobin 29.1 28.0-32.0 pg Mean Corpuscular Hemoglobin Concent 34.0 32.0-36.0 g/dL Red Cell Distribution Width 14.7 H 11.8-14.3 % Platelet Count 236 140-450 10^3/uL Mean Platelet Volume 6.6 L 6.9-10.8 fL Neutrophils (%) (Auto) 76.1 37.0-80.0 % Lymphocytes (%) (Auto) 12.9 10.0-50.0 % Monocytes (%) (Auto) 7.7 0.0-12.0 % Eosinophils (%) (Auto) 3.1 0.0-7.0 % Basophils (%) (Auto) 0.2 0.0-2.0 % Neutrophils # (Auto) 5.4 1.6-8.6 10 ^3/uL Lymphocytes # (Auto) 0.9 0.4-5.4 10 ^3/uL Monocytes # (Auto) 0.5 0-1.3 10 ^3/uL Eosinophils # (Auto) 0.2 0-0.8 10 ^3/uL Basophils # (Auto) 0 0-0.2 10 ^3/uL Nucleated Red Blood Cells 0.0 % Sodium Level 140 136-145 mmol/L Potassium Level 3.6 3.5-5.1 mmol/L Chloride Level 106 98-107 mmol/L Carbon Dioxide Level 21 20-31 mmol/L Anion Gap 13 5-15 Blood Urea Nitrogen 6 L 9-23 mg/dL Creatinine 0.47 L 0.550-1.02 mg/dL Glomerular Filtration Rate Calc 133 >90 mL/min BUN/Creatinine Ratio 12.8 10.0-20.0 Serum Glucose 69 L 74-106 mg/dL Hemoglobin A1c 5.2 <5.7 % A1C Calcium Level 8.5 L 8.7-10.4 mg/dL Total Bilirubin 4.7 H 0.2-1.0 mg/dL Aspartate Amino Transferase (AST) 307 H 13-40 U/L Alanine Aminotransferase (ALT) 526 H 7-40 U/L Alkaline Phosphatase 151 H 46-116 U/L Total Protein 6.5 5.7-8.2 g/dL Albumin 4.1 3.2-4.8 g/dL Prothrombin Time 10.3 9.3-11.8 sec Prothrombin Time INR 0.97 0.9-1.15 Activated Partial Thromboplast Time 23.4 L 24.5-34.5 SEC Urine Color Yellow Yellow Urine Clarity Turbid H Clear Urine pH 7.0 5.0-9.0 Urine Specific [place] 1.036 H 1.001-1.035 Urine Protein 1+ H Negative Urine Ketones Negative Negative Urine Blood Negative Negative /uL Urine Nitrite Negative Negative Urine Bilirubin 1+ H Negative Urine Urobilinogen 6 Negative mg/dL Urine Leukocyte Esterase 1+ Negative /uL Urine RBC 42 0 - 4 /hpf Urine Microscopic WBC 5 0-5 /HPF Urine Squamous Epithelial Cells Mod <5 /hpf Urine Bacteria None seen None Seen /hpf Urine Mucus Few None Seen Urine Glucose Normal Normal mg/dL Urine Test Negative Negative Lactic Acid Level 1.6 0.4-2.0 mmol/L Lipase 36 12-53 U/L Assessment patient interviewed in Thai and examined, she has had at least two prior episodes of right upper quadrant pain now has elevated Bilirubin( two high for uncomplicated cholecystitis and ultrasound does not confirm cholecystitis, tenderness is minimal in RUQ, ) on my review of the imaging I do not thing she has Mirizzi"s syndrome and I suspect that she has common bile duct Stone(s), I have discussed with Dr.H Suarez and recommended ERCP prior to cholecystectomy Plan discussed with: Patient NATHANIEL BAIG MD Mar 18, 2025 11:38
--- NOTE | 2025-03-18 11:45 | DVHPN2 ---
Reviewed: Care Plan, H&P, Labs, Medications, Previous Orders, Radiology Changes from previous H/P or p: No Changes Eyes: No Pain, No Vision change, No Conjunctivae inflammation, No Eyelid inflammation, No Other, No Redness ENT: No Ear pain, No Ear discharge, No Nose pain, No Nose discharge, No Nose congestion, No Mouth pain, No Mouth swelling, No Throat pain, No Throat swelling, No Other Cardiovascular: No Chest Pain, No Palpitations, No Orthopnea, No Paroxysmal Noc. Dyspnea, No Edema, No Lt Headedness, No Other Respiratory: No Cough, No Dry, No Shortness of breath, No SOB with excertion, No Wheezing, No Hemoptysis, No Pleuritic Pain, No Sputum, No Other Gastrointestinal: Nausea, Vomiting, Abdominal Pain; No Diarrhea, No Constipation, No Melena, No Hematochezia, No Other Genitourinary: No Dysuria, No Frequency, No Incontinence, No Hematuria, No Retention, No Other Musculoskeletal: No other, No neck pain, No shoulder pain, No arm pain, No back pain, No hand pain, No leg pain, No foot pain Skin: No Rash, No Lesions, No Jaundice, No Bruising, No Other Objective Vitals Vital Signs Date Time Temp Pulse Resp B/P (MAP) Pulse Ox O2 Delivery O2 Flow Rate FiO2 03/18/25 08:47 98.7 71 16 117/73 (88) 97 98.7 03/18/25 08:00 Room Air* 0 21 Intake/Output Intake and Output 03/18/25 07:00 Intake Total 1100 ml Output Total 0 ml Balance 1100 ml Intake Oral 0 ml IV Total 1100 ml Output Urine Total 0 ml Medications Current Medications Medications Dose Ordered Sig/Hayes Route Start Time Stop Time Status Last Admin Dose Admin Acetaminophen/ Hydrocodone Bitart 1 tab Q4HP PRN PO 03/17/25 08:15 03/18/25 06:42 1 TAB Ondansetron HCl 4 mg Q4HP PRN IV 03/17/25 08:15 Docusate Sodium 100 mg BIDPRN PRN PO 03/17/25 08:15 Acetaminophen 650 mg Q6HP PRN PO 03/17/25 08:15 Ceftriaxone Sodium 50 ml @ 100 mls/hr DAILY@09 IV 03/18/25 09:00 03/18/25 10:17 100 MLS/HR Metronidazole 100 ml @ 100 mls/hr Q8HR IV 03/17/25 14:00 03/18/25 05:00 100 MLS/HR Potassium Chloride/Dextrose/ Sod Cl 1,000 ml @ 120 mls/hr Q8H20M IV 03/18/25 08:45 03/18/25 10:17 120 MLS/HR Hydromorphone HCl 1 mg Q3HPRN PRN IV 03/18/25 08:45 Laboratory Results Laboratory Tests 03/18/25 05:16 Chemistry Test 03/18/25 05:16 Albumin 4.1 g/dL (3.2-4.8) Calcium Level 8.5 mg/dL (8.7-10.4) L Total Protein 6.5 g/dL (5.7-8.2) LFT Test 03/18/25 05:16 Alanine Aminotransferase (ALT) 526 U/L (7-40) H Alkaline Phosphatase 151 U/L (46-116) H Aspartate Amino Transferase (AST) 307 U/L (13-40) H Total Bilirubin 4.7 mg/dL (0.2-1.0) H HgA1c, TSH Test 03/18/25 05:16 Hemoglobin A1c 5.2 % A1C (<5.7) Urinalysis Test 03/17/25 03:00 Urine Color Yellow (Yellow) Urine Clarity Turbid (Clear) H Urine pH 7.0 (5.0-9.0) Urine Specific [place] 1.036 (1.001-1.035) Urine Protein 1+ (Negative) H Urine Ketones Negative (Negative) Urine Blood Negative /uL (Negative) Urine Nitrite Negative (Negative) Urine Bilirubin 1+ (Negative) H Urine Urobilinogen 6 mg/dL (Negative) Urine Leukocyte Esterase 1+ /uL (Negative) Urine RBC 42 /hpf (0 - 4) Urine Microscopic WBC 5 /HPF (0-5) Urine Squamous Epithelial Cells Mod /hpf (<5) Urine Bacteria None seen /hpf (None Seen) Urine Mucus Few (None Seen) Urine Glucose Normal mg/dL (Normal) Urine Test Negative (Negative) Labs and/or images reviewed: Labs reviewed by me, Image(s) reviewed by me Assessment/Plan Assessment/Plan Acute right upper quadrant abdominal pain Cholelithiasis possible cholecystitis: Rocephin Flagyl pain medication surgical consult by Dr. 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 Findings concerning for cholecystitis. Recommend HIDA scan. Dilatation of intrahepatic ducts 8 mm and borderline dilatation CBD to 7 mm. No definitive choledocholithiasis identified. Dilatation of the intrahepatic ducts could be secondary to mass effect/ compression from the gallbladder upon the cBD/common hepatic duct. Acute dehydration: IV fluids Surgeon Dr. Meyers advised the patient to be transferred to higher level of care for ERCP Time Spent 36 minutes Explained to the patient with help of electroencephalogram technologist Plan discussed with: Patient My Orders Orders - ALFONZO SEALS MD Procedure Category Date Status Time Ceftriaxone 1gm/50ml PHA 03/18/25 In Process (Rocephin) 09:00 Metronidazole PHA 03/17/25 In Process 500mg/100ml (Flagyl 14:00 Nm Hida Scan NM 03/17/25 Resulted 13:38 Date of Service: Mar 18, 2025 Billing Provider: ALFONZO SEALS MD Common Visit Codes: [id number] INP/OBS CARE(HIGH) ALFONZO SEALS MD Mar 18, 2025 11:45
--- NOTE | 2025-03-18 11:50 | DVHDS2 ---
Discharge Summary Date of Admission Mar 17, 2025 at 08:26 Date of Discharge: Mar 18, 2025 Admitting Diagnosis Right upper quadrant abdominal pain Wounds: None Labs/Diagnostic Data: Laboratory Results Test 03/18/25 05:16 03/17/25 10:00 03/17/25 03:00 03/17/25 01:05 White Blood Count 7.1 10^3/uL (4.4-10.8) Red Blood Count 4.50 10^6/uL (4.0-5.20) Hemoglobin 13.1 g/dL (12.2-16.2) Hematocrit 38.4 % (36.0-46.0) Mean Corpuscular Volume 85.5 fL (80.0-100.0) Mean Corpuscular Hemoglobin 29.1 pg (28.0-32.0) Mean Corpuscular Hemoglobin Concent 34.0 g/dL (32.0-36.0) Red Cell Distribution Width 14.7 % (11.8-14.3) Platelet Count 236 10^3/uL (140-450) Mean Platelet Volume 6.6 fL (6.9-10.8) Neutrophils (%) (Auto) 76.1 % (37.0-80.0) Lymphocytes (%) (Auto) 12.9 % (10.0-50.0) Monocytes (%) (Auto) 7.7 % (0.0-12.0) Eosinophils (%) (Auto) 3.1 % (0.0-7.0) Basophils (%) (Auto) 0.2 % (0.0-2.0) Neutrophils # (Auto) 5.4 10 ^3/uL (1.6-8.6) Lymphocytes # (Auto) 0.9 10 ^3/uL (0.4-5.4) Monocytes # (Auto) 0.5 10 ^3/uL (0-1.3) Eosinophils # (Auto) 0.2 10 ^3/uL (0-0.8) Basophils # (Auto) 0 10 ^3/uL (0-0.2) Nucleated Red Blood Cells 0.0 % Sodium Level 140 mmol/L (136-145) Potassium Level 3.6 mmol/L (3.5-5.1) Chloride Level 106 mmol/L (98-107) Carbon Dioxide Level 21 mmol/L (20-31) Anion Gap 13 (5-15) Blood Urea Nitrogen 6 mg/dL (9-23) Creatinine 0.47 mg/dL (0.550-1.02) Glomerular Filtration Rate Calc 133 mL/min (>90) BUN/Creatinine Ratio 12.8 (10.0-20.0) Serum Glucose 69 mg/dL (74-106) Hemoglobin A1c 5.2 % A1C (<5.7) Calcium Level 8.5 mg/dL (8.7-10.4) Total Bilirubin 4.7 mg/dL (0.2-1.0) Aspartate Amino Transferase (AST) 307 U/L (13-40) Alanine Aminotransferase (ALT) 526 U/L (7-40) Alkaline Phosphatase 151 U/L (46-116) Total Protein 6.5 g/dL (5.7-8.2) Albumin 4.1 g/dL (3.2-4.8) Prothrombin Time 10.3 sec (9.3-11.8) Prothrombin Time INR 0.97 (0.9-1.15) Activated Partial Thromboplast Time 23.4 SEC (24.5-34.5) Urine Color Yellow (Yellow) Urine Clarity Turbid (Clear) Urine pH 7.0 (5.0-9.0) Urine Specific [place] 1.036 (1.001-1.035) Urine Protein 1+ (Negative) Urine Ketones Negative (Negative) Urine Blood Negative /uL (Negative) Urine Nitrite Negative (Negative) Urine Bilirubin 1+ (Negative) Urine Urobilinogen 6 mg/dL (Negative) Urine Leukocyte Esterase 1+ /uL (Negative) Urine RBC 42 /hpf (0 - 4) Urine Microscopic WBC 5 /HPF (0-5) Urine Squamous Epithelial Cells Mod /hpf (<5) Urine Bacteria None seen /hpf (None Seen) Urine Mucus Few (None Seen) Urine Glucose Normal mg/dL (Normal) Urine Test Negative (Negative) Lactic Acid Level 1.6 mmol/L (0.4-2.0) Lipase 36 U/L (12-53) Other Laboratory Tests 03/18/25 05:16 Brief Hx & Hospital Course: 81-year-old female with no previous medical history came in with a right upper quadrant abdominal pain. Patient has had pretty liver enzymes and bilirubin 4.7. CT abdomen pelvis without contrast showed gallstones. HIDA scan was positive for cholecystitis MRCP showed distended gallbladder with a pericholecystic fluid and small gallstones near the gallbladder neck and cystic duct . CBD dilated to 7 mm. Patient was treated with Rocephin Flagyl pain medications IV fluids. Surgeon Dr. Meyers evaluated the patient advised to transfer the patient to higher level of care for ERCP for possible CBD stone. Consults/Reason for consult Surgeon Dr. Martinez Surgeon Dr. Meyers Operations or Procedures CT abdomen pelvis without contrast Gallbladder ultrasound HIDA scan MRCP Condition at Discharge: Fair Final Diagnosis/Problems List Acute right upper quadrant abdominal pain Cholelithiasis possible cholecystitis: Rocephin Flagyl pain medication surgical consult by Dr. 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 Findings concerning for cholecystitis. Recommend HIDA scan. Dilatation of intrahepatic ducts 8 mm and borderline dilatation CBD to 7 mm. No definitive choledocholithiasis identified. Dilatation of the intrahepatic ducts could be secondary to mass effect/ compression from the gallbladder upon the cBD/common hepatic duct. Acute dehydration: IV fluids Surgeon Dr. Meyers advised the patient to be transferred to higher level of care for ERCP Discharge Disposition: Acute Care Facility Discharge Instruct/Medications Diet: Regular Activity: Light activity Follow Up/Referral: Per receiving hospital Medications: see list Discharge Statement: "Patient was advised to return to the ER or call 911 if any headaches, dizziness, shortness of breath, chest pain, abdominal pain, bleeding, fevers, or worsening of medical condition. Patient was counseled about treatment plan, medications, possible side effects, patientverbalized understanding. All questions were answered to the best of my ability. This discharge took greater then 30 minutes in planning, reviewing documentation, counseling the patient, and discussing with other team members." ASSESSMENT ASSESSMENT Hospital Course No change Assessment Acute right upper quadrant abdominal pain Cholelithiasis possible cholecystitis: Rocephin Flagyl pain medication surgical consult by Dr. 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 Findings concerning for cholecystitis. Recommend HIDA scan. Dilatation of intrahepatic ducts 8 mm and borderline dilatation CBD to 7 mm. No definitive choledocholithiasis identified. Dilatation of the intrahepatic ducts could be secondary to mass effect/ compression from the gallbladder upon the cBD/common hepatic duct. Acute dehydration: IV fluids Surgeon Dr. Meyers advised the patient to be transferred to higher level of care for ERCP Date of Service: Mar 18, 2025 Billing Provider: ALFONZO SEALS MD Common Visit Codes: [id number] DISCH DAY >30min ALFONZO SEALS MD Mar 18, 2025 11:50
[2025-03-19] VITALS (8 sets, daily range): BP systolic 105–130; BP diastolic 61–85; PULSE 58–81; RESP 16–18; TEMP 36.3; O2SAT 95–99
[2025-03-19] MEDS: ACETAMINOPHEN 325 MG TAB PO PRN (09:37)
--- NOTE | 2025-03-19 10:56 | DVHPN2 ---
Reviewed: Care Plan, H&P, Labs, Medications, Previous Orders, Radiology Changes from previous H/P or p: No Changes Eyes: No Pain, No Vision change, No Conjunctivae inflammation, No Eyelid inflammation, No Other, No Redness ENT: No Ear pain, No Ear discharge, No Nose pain, No Nose discharge, No Nose congestion, No Mouth pain, No Mouth swelling, No Throat pain, No Throat swelling, No Other Cardiovascular: No Chest Pain, No Palpitations, No Orthopnea, No Paroxysmal Noc. Dyspnea, No Edema, No Lt Headedness, No Other Respiratory: No Cough, No Dry, No Shortness of breath, No SOB with excertion, No Wheezing, No Hemoptysis, No Pleuritic Pain, No Sputum, No Other Gastrointestinal: Nausea, Vomiting, Abdominal Pain; No Diarrhea, No Constipation, No Melena, No Hematochezia, No Other Genitourinary: No Dysuria, No Frequency, No Incontinence, No Hematuria, No Retention, No Other Musculoskeletal: No other, No neck pain, No shoulder pain, No arm pain, No back pain, No hand pain, No leg pain, No foot pain Skin: No Rash, No Lesions, No Jaundice, No Bruising, No Other Objective Vitals Vital Signs Date Time Temp Pulse Resp B/P (MAP) Pulse Ox O2 Delivery O2 Flow Rate FiO2 03/19/25 09:00 98.4 78 17 130/85 (100) 97 98.4 03/18/25 20:00 Room Air* 0 21 Intake/Output Intake and Output 03/19/25 07:00 Intake Total 0 ml Balance 0 ml Intake Oral 0 ml # Voids 2 Medications Current Medications Medications Dose Ordered Sig/Hayes Route Start Time Stop Time Status Last Admin Dose Admin Acetaminophen/ Hydrocodone Bitart 1 tab Q4HP PRN PO 03/17/25 08:15 03/18/25 20:12 1 TAB Ondansetron HCl 4 mg Q4HP PRN IV 03/17/25 08:15 Docusate Sodium 100 mg BIDPRN PRN PO 03/17/25 08:15 Acetaminophen 650 mg Q6HP PRN PO 03/17/25 08:15 03/19/25 09:37 650 MG Ceftriaxone Sodium 50 ml @ 100 mls/hr DAILY@09 IV 03/18/25 09:00 03/19/25 09:18 100 MLS/HR Metronidazole 100 ml @ 100 mls/hr Q8HR IV 03/17/25 14:00 03/19/25 05:00 100 MLS/HR Potassium Chloride/Dextrose/ Sod Cl 1,000 ml @ 120 mls/hr Q8H20M IV 03/18/25 08:45 03/19/25 09:18 120 MLS/HR Hydromorphone HCl 1 mg Q3HPRN PRN IV 03/18/25 08:45 Laboratory Results Laboratory Tests 03/18/25 05:16 Urinalysis Test 03/17/25 03:00 Urine Color Yellow (Yellow) Urine Clarity Turbid (Clear) H Urine pH 7.0 (5.0-9.0) Urine Specific [place] 1.036 (1.001-1.035) Urine Protein 1+ (Negative) H Urine Ketones Negative (Negative) Urine Blood Negative /uL (Negative) Urine Nitrite Negative (Negative) Urine Bilirubin 1+ (Negative) H Urine Urobilinogen 6 mg/dL (Negative) Urine Leukocyte Esterase 1+ /uL (Negative) Urine RBC 42 /hpf (0 - 4) Urine Microscopic WBC 5 /HPF (0-5) Urine Squamous Epithelial Cells Mod /hpf (<5) Urine Bacteria None seen /hpf (None Seen) Urine Mucus Few (None Seen) Urine Glucose Normal mg/dL (Normal) Urine Test Negative (Negative) Labs and/or images reviewed: Labs reviewed by me, Image(s) reviewed by me Assessment/Plan Assessment/Plan Acute right upper quadrant abdominal pain Cholelithiasis possible cholecystitis: Rocephin Flagyl pain medication surgical consult by Dr. 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 Findings concerning for cholecystitis. Recommend HIDA scan. Dilatation of intrahepatic ducts 8 mm and borderline dilatation CBD to 7 mm. No definitive choledocholithiasis identified. Dilatation of the intrahepatic ducts could be secondary to mass effect/ compression from the gallbladder upon the cBD/common hepatic duct. Acute dehydration: IV fluids Surgeon Dr. Meyers advised the patient to be transferred to higher level of care for ERCP Time Spent 36 minutes Explained to the patient with help of property loss insurance claim adjuster CASI Saavedra and RN Jigna at bedside Plan discussed with: Patient My Orders Orders - ALFONZO SEALS MD Procedure Category Date Status Time Discharge DISCHARGE 03/18/25 Transmitted 11:27 * [employer] CONS 03/18/25 Transmitted Consult Date of Service: Mar 19, 2025 Billing Provider: ALFONZO SEALS MD Common Visit Codes: [id number] INP/OBS CARE(HIGH) ALFONZO SEALS MD Mar 19, 2025 10:56
== END 2025-03-19 21:15 | disposition short-term general hospital (02) ==
LOC: ER 22:45 → OVERFLOW 03-17 08:26 → WEST WING 03-17 22:45
PROVIDERS: ADMIT Family Medicine; ATTEND Family Medicine
DX: K80.11 Calculus of gallbladder with chronic cholecystitis with obstruction (principal); K82.1 Hydrops of gallbladder; E86.0 Dehydration; R74.01 Elevation of levels of liver transaminase levels; R79.89 Other specified abnormal findings of blood chemistry; K82.8 Other specified diseases of gallbladder
CPT/HCPCS: 36415; 71045; 74177; 74181; 76705; 78226; 80053; 81001; 81025; 83036; 83605; 83690; 85025; 85610; 85730; 96372; G0378; J1885; J3490; Q0162